=== PATIENT | female | born 1980 | race Caucasian/White ===

== ENCOUNTER 2021-09-30 11:50 | Emergency (ER) | payer OTHER, SELFPAY ==
--- NOTE | ~2021-09-30 | XR_ITS ---
XR cervical spine 4-5V 09/30/2021 12:38 Indication: Neck pain after trauma Procedure: 6 view cervical spine Comparison: 05/28/2004 Findings: No fracture or traumatic malalignment. Normal cervical alignment. No prevertebral soft tiss ue swelling. Vertebral body heights are maintained. 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 Odontoid process within normal limits. Lung apices are normal. Impression: 1: No acute abnormality of the cervical spine. Reviewed, dictated and finalized at location B. Impression: 1: No acute abnormality of the cervical spine.
[2021-09-30 12:05] VITALS: BP 130/69; PULSE 79; RESP 20; TEMP 36.9; O2SAT 99
--- NOTE | 2021-09-30 12:42 | ED.NECK ---
HPI - Neck Pain/Injury General Chief Complaint: Neck Pain/Injury Stated Complaint: neck pain headache Time Seen by Provider: 09/30/21 11:55 Source: patient Mode of arrival: ambulatory Limitations: no limitations History of Present Illness HPI Narrative: Ms. Francis is a 41-year-old female patient presenting to the clinic today with complaints of neck pain after diving for a volleyball last night while playing sand volleyball. She reports she hit her head and neck in the sand and felt a pop in her neck. She denies any loss of consciousness, nausea, or vomiting. She is reporting a headache that comes from the posterior head and is radiating up from the neck. She reports the pain is also radiating in between her shoulder blades. MD complaint: neck pain and neck injury Related Data Allergies Allergy/AdvReac Type Severity Reaction Status Date / Time No Known Allergies Allergy Unknown Verified 09/30/21 12:09 Review of Systems Review of Systems: Pertinent positives per HPI. Patient denies any fever, chills, rash, headache, visual changes, dizziness, cough, runny nose, sore throat, shortness of breath, chest pain, palpitations, nausea, vomiting, diarrhea, constipation, abdominal pain, or any urinary issues. PMFSH Comments At the time of my signature, I reviewed and agree with the nursing past medical, surgical, social, and family history. There is no relevant family history pertinent to the patient complaint. Exam Narrative: General: Well-developed, well nourished, in no apparent distress Head: Normocephalic, atraumatic. Cardio: Regular rate and rhythm, s1 and s2 normal, no murmur appreciated. Resp: Clear to auscultation bilaterally, no rhonchi, rales, wheezing or rubs. Musculoskeletal: No deformity,tender to palpation over the bilateral cervical musculature/trapezius muscle with pain radiating up into the head and down into the shoulder blades. Pain with rotation against resistance as well as flexion and extension of the neck, very limited range of motion due to pain, peripheral pulse strong, no edema, no cyanosis, normal gait and station Course Course Emergency Course: Portions of this record may have been created with voice recognition software. Level of Care: Express Care Visit Vital Signs Vital signs: Vital Signs Temperature 36.9 C 09/30/21 12:05 Pulse Rate 79 09/30/21 12:05 Respiratory Rate 20 09/30/21 12:05 Blood Pressure 130/69 09/30/21 12:05 Pulse Oximetry 99 09/30/21 12:05 Oxygen Delivery Room Air 09/30/21 12:05 Temperature 36.9 C 09/30/21 12:05 Pulse Rate 79 09/30/21 12:05 Respiratory Rate 20 09/30/21 12:05 Blood Pressure 130/69 09/30/21 12:05 Pulse Oximetry 99 09/30/21 12:05 Oxygen Delivery Room Air 09/30/21 12:05 Vital signs reviewed MDM - Neck Pain/Injury MDM Narrative Medical decision making narrative: At the time of visit patient is resting comfortably on the exam table. X-ray was performed and was negative for any fracture or malalignment of the cervical spine. I suspect that the patient has a closed head injury as well as a cervical strain of the neck. Supportive measures were discussed with the patient I will give her a prescription for some naproxen and Flexeril. Patient voiced understanding of discharge instructions and agrees to treatment plan Discharge Plan Discharge Clinical Impression: Strain of neck muscle Qualifiers: Encounter type: initial encounter Qualified Code(s): S16.1XXA - Strain of muscle, fascia and tendon at neck level, initial encounter Closed head injury Qualifiers: Encounter type: initial encounter Qualified Code(s): S09.90XA - Unspecified injury of head, initial encounter Patient Disposition: Home, Self-Care Condition: Stable Instructions: Cervical Strain (ED), Head Injury (ED) Additional Instructions: X-ray performed and is negative for any fracture or malalignment of the cervical spine May apply heat or ice to
== END 2021-09-30 13:01 | disposition home or self-care (01) ==
PROVIDERS: Emergency Provider Nurse Practitioner Family; PCP Internal Medicine
DX: S16.1XXA Strain of muscle, fascia and tendon at neck level, initial encounter (principal); W19.XXXA Unspecified fall, initial encounter; Y93.68 Activity, volleyball (beach) (court); S09.90XA Unspecified injury of head, initial encounter
CPT/HCPCS: 72050; 99213; G0463

== ENCOUNTER 2022-03-22 16:11 | Emergency (ER) | payer OTHER, SELFPAY ==
[2022-03-22 16:49] VITALS: BP 127/54; PULSE 70; RESP 14; TEMP 36.4; O2SAT 98
--- NOTE | 2022-03-22 17:52 | ED.URI ---
HPI - URI/Sore Throat General Chief Complaint: Upper Respiratory Infection Stated Complaint: Sore Throat/Cough Time Seen by Provider: 03/22/22 17:52 Source: patient and RN notes reviewed Mode of arrival: ambulatory Limitations: no limitations History of Present Illness HPI Narrative: 42-year-old female presents concern for one-week history of cough, hoarseness. Reports has worsened today. Reports exposure to strep throat. She reports she is taking DayQuil without relief. She reports nasal congestion, rhinorrhea have improved MD elicited complaint: cough Related Data Allergies Allergy/AdvReac Type Severity Reaction Status Date / Time No Known Allergies Allergy Unknown Verified 09/30/21 12:09 Review of Systems Review of Systems: CONSTITUTIONAL: Denies malaise, chills, sweats, or fever. EYES: Denies visual changes, redness, or discharge. ENT: Denies rhinorrhea, congestion, sinus pain, otalgia. Reports sore throat. CARDIOVASCULAR: Denies chest pain, palpitations, or edema. RESPIRATORY: Reports cough, hoarse voice. Denies dyspnea. GASTROINTESTINAL: Denies abdominal pain, nausea, vomiting, diarrhea SKIN: Denies rash or itching. MUSCULOSKELETAL: Denies myalgia. NEUROLOGIC: Denies headache. All systems reviewed & are unremarkable except as noted in HPI and below PMFSH Comments At time of signature, agree with nursing past medical, surgical, social and family history. There is no relevant family history pertinent to the presenting complaint Exam Narrative: GENERAL: Nontoxic appearing and in no acute distress. HEAD: Normocephalic EYES: PERRLA, conjunctivae clear ENT: Nares clear. Mucous membranes moist. TM pearly jacques with sharp light reflex bilaterally; no tragal tenderness. Oropharynx erythematous without lesions. Tonsils not enlarged and without exudate, no drooling, no hoarseness, no trismus, uvula midline. NECK: Supple. No lymphadenopathy CHEST: Clear to auscultation, breath sounds equal. No wheezing, rhonchi, rales, or stridor. No respiratory distress, speaks in full sentences. Persistent cough noted HEART: Regular rate and rhythm. No murmur heard. SKIN: Warm, dry, no rash. NEURO: Alert and oriented x3. PSYCH: Normal mood and affect Course Course Emergency Course: Patient is aware of diagnosis, understands and agrees to treatment plan. Anticipatory guidance given. Patient agrees to follow-up as directed and is aware of reasons to seek care at the emergency department. Portions of this record may have been created with voice recognition software Level of Care: Express Care Visit Vital Signs Vital signs: Vital Signs Temperature 97.6 F 03/22/22 16:49 Pulse Rate 70 03/22/22 16:49 Respiratory Rate 14 03/22/22 16:49 Blood Pressure 127/54 L 03/22/22 16:49 Pulse Oximetry 98 03/22/22 16:49 Oxygen Delivery Room Air 03/22/22 16:49 Temperature 97.6 F 03/22/22 16:49 Pulse Rate 70 03/22/22 16:49 Respiratory Rate 14 03/22/22 16:49 Blood Pressure 127/54 L 03/22/22 16:49 Pulse Oximetry 98 03/22/22 16:49 Oxygen Delivery Room Air 03/22/22 16:49 Reviewed. MDM - URI/Sore Throat MDM Narrative Medical decision making narrative: Differential diagnosis considered: [place] virus, strep pharyngitis, allergic rhinitis, upper respiratory tract infection, sinusitis, rhinosinusitis, nasopharyngitis. viral pharyngitis, otitis media, otitis externa, pneumonia, bronchitis, viral cough syndrome, viral syndrome, and influenza. Exam findings show no acute concerns or changes; patient is non-toxic appearing and is in no distress. Patient is appropriate for outpatient treatment and follow-up. Lab Data Attestation: I reviewed the patient's lab results. Critical Care Time Critical Care Time Critical Care Time: No Discharge Plan Discharge Clinical Impression: Upper respiratory infection with cough and congestion Patient Disposition: Home, Self-Care Condition: Stable Instructions: Antibiot
== END 2022-03-22 18:10 | disposition home or self-care (01) ==
PROVIDERS: Emergency Provider Nurse Practitioner; PCP Internal Medicine
DX: J06.9 Acute upper respiratory infection, unspecified (principal)
CPT/HCPCS: 99213; G0463

== ENCOUNTER 2022-04-22 14:35 | Emergency (ER) | payer OTHER, SELFPAY ==
--- NOTE | ~2022-04-22 | XR_ITS ---
EXAMINATION: XR abdomen/kub 1V DATE: 04/22/2022 15:12 INDICATION: Left upper abdominal pain. Left flank pain. Diarrhea. TECHNIQUE: A supine view of the abdomen on 2 radiographs was obtained. COMPARISON: None. FINDINGS: There are no dilated loops of bowel. There is a small volume of stool in the colon. There i s an intrauterine device in expected position. Two 3 mm calcifications overlying left kidney are like ly stones. IMPRESSION: 1. Normal bowel gas pattern. 2. Small left kidney stones. Reviewed, dictated and finalized at location A. AD DRESSER
[2022-04-22 14:40] VITALS: BP 114/73; PULSE 74; RESP 16; TEMP 36.9; O2SAT 100
--- NOTE | 2022-04-22 15:30 | ED.ABDPAIN ---
HPI - Abdominal Pain General Chief Complaint: Abdominal Pain Stated Complaint: Pain in Left Side Time Seen by Provider: 04/22/22 14:39 Source: patient Mode of arrival: ambulatory Limitations: no limitations History of Present Illness HPI narrative: Oanh is a 42-year-old female patient presenting to the clinic today with complaints of left-sided upper abdominal pain and flank pain times 2-3 days. She denies any fever or chills. She reports that the pain is sharp and comes and goes. She reports she has been having diarrhea for the past 3 weeks. She denies any nausea or vomiting. No chance of . She is passing gas. No history of kidney stones. Related Data Home Medications Medication Instructions Recorded Confirmed No Home Medications 04/22/22 04/22/22 Allergies Allergy/AdvReac Type Severity Reaction Status Date / Time No Known Allergies Allergy Unknown Verified 04/22/22 14:56 Review of Systems Review of Systems: Pertinent positives per HPI. Patient denies any fever, chills, rash, headache, visual changes, dizziness, cough, runny nose, sore throat, shortness of breath, chest pain, palpitations, nausea, vomiting, diarrhea, constipation, abdominal pain, or any urinary issues. PMFSH Comments At the time of my signature, I reviewed and agree with the nursing past medical, surgical, social, and family history. There is no relevant family history pertinent to the patient complaint. Exam Narrative: General: Well-developed, well nourished, in no apparent distress. Head: Normocephalic, atraumatic. Cardio: Regular rate and rhythm, s1 and s2 normal, no murmur appreciated. Resp: Clear to auscultation bilaterally, no rhonchi, rales, wheezing or rubs. Abdomen: Soft, pliable, bowel sounds present in all quadrants, tender to palpation over the left upper quadrant, no organomegly, mild left CVAT tenderness. Course Course Emergency Course: Portions of this record may have been created with voice recognition software. Level of Care: Express Care Visit Vital Signs Vital signs: Vital Signs Temperature 36.9 C 04/22/22 14:40 Pulse Rate 74 04/22/22 14:40 Respiratory Rate 16 04/22/22 14:40 Blood Pressure 114/73 04/22/22 14:40 Pulse Oximetry 100 04/22/22 14:40 Oxygen Delivery Room Air 04/22/22 14:40 Temperature 36.9 C 04/22/22 14:40 Pulse Rate 74 04/22/22 14:40 Respiratory Rate 16 04/22/22 14:40 Blood Pressure 114/73 04/22/22 14:40 Pulse Oximetry 100 04/22/22 14:40 Oxygen Delivery Room Air 04/22/22 14:40 Vital signs reviewed MDM - Abdominal Pain MDM Narrative Medical decision making narrative: At the time of visit patient is resting comfortably on the exam table. Patient has trace of intact blood in her urine, intermittent flank and left upper quadrant pain, and kidney stones in her left kidney per x-ray. I suspect the patient may have a ureteral stone. Recommend transfer to the emergency room for further evaluation but patient declines at this time. Risk and benefits were explained to the patient she voiced understanding. Supportive measures were discussed with the patient she voiced understanding of discharge instructions agrees to treatment plan. Patient requesting work note Differential Diagnosis Differential diagnosis: Likely abdominal pain, calculus of kidney, gastroenteritis and other ( Ureteral stone) Lab Data Labs: Urine Glucose Negative Reference Range: Negative Urine Bilirubin Negative Reference Range: Negative Urine Ketone Negative Reference Range: Negative Urine Specific [place] 1.010 Reference Range:1.001-1.035 Urine Blood Trace
== END 2022-04-22 15:40 | disposition home or self-care (01) ==
PROVIDERS: Emergency Provider Nurse Practitioner Family; PCP Internal Medicine
DX: R10.12 Left upper quadrant pain (principal); N20.0 Calculus of kidney
CPT/HCPCS: 74018; 81003; 99213; G0463